=== PATIENT | female | born 1960 | race African-American/Black ===

== ENCOUNTER → 2017-09-05 | Outpatient (CLI) | payer BC, OTHER ==
--- NOTE | 2017-09-06 12:36 | MRI ---
MRI right knee without contrast. Indication: Bilateral knee pain Technique: Multiplanar, multi sequence imaging of the right knee without IV contrast administration. Findings: The extensor mechanism is intact. The patella demonstrates mild lateral tilting however rem ains well positioned within the femoral trochlea. Articular cartilage is mildly thinned within the me dial patellar facet however no subchondral bone marrow edema identified. The medial and lateral retin acular complexes are intact. There is mild widening of the tibial tuberosity to trochlear groove dist ance measuring approximate 2.1 cm. Small suprapatellar joint effusion. Small popliteal fossa cyst. Th e popliteus muscle and tendon are normal. Pes anserine tendons are normal as well. The medial femorot ibial compartment demonstrates diffuse mild thinning of the articular cartilage however there is no s ubchondral bone marrow edema or cystic change. The lateral tibial compartment demonstrates no chondra l thinning or subchondral bone marrow signal abnormality. Bone marrow signal is preserved throughout the right knee. Cruciate collateral ligaments are normal. Iliotibial band and biceps femoris are with in normal limits. The medial meniscus demonstrates irregularity and mild intermediate signal along th e undersurface of the posterior horn for example on coronal image 23 the lateral meniscus is intact. Impression: 1. 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 2. Undersurface fraying and intermediate signal within the posterior horn of the medial meniscus like ly represents chronic, degenerative fraying. No acute or displaced medial or lateral meniscal tear. 3. Mild widening of the tibial tuberosity to trochlear groove distance and lateral tilting of the pat ever is nonspecific as there is no cartilage thinning or edema within the fat pad inferior to the lat eral patellar facet as is usually present with a patellar tracking abnormality. 4. The cruciate and collateral ligaments are intact. Reported By:
--- NOTE | 2017-09-06 12:57 | MRI ---
MRI left knee without contrast Indication: Bilateral knee pain Technique: Multiplanar, multi sequence imaging of the left knee without IV contrast administration. Findings: The extensor mechanism is intact. The patella is normal position without evidence of cartil age thinning or subchondral bone marrow edema. The medial and lateral retinacular complex are intact. The tibial tuberosity to trochlear groove distance is normal. Small suprapatellar joint effusion. Pe s anserine tendons are normal. No popliteal fossa cyst. Popliteus muscle and tendon cord will prove The medial and lateral femorotibial compartments demonstrate mild chondral thinning of the lateral fe morotibial compartment without subchondral bone marrow edema. The no localizing bone marrow signal ab normality within the left knee. Cruciate and collateral ligaments are intact. The medial lateral meni sci are without evidence of tear. Impression: 1.Mild degenerative change of the lateral femorotibial compartment evidence by chondral thinning with out high-grade chondral loss or subchondral bone marrow edema. 2. Cruciate and collateral ligaments along with the menisci are intact. Reported By:
== END ==
LOC: RAD 12:44
PROVIDERS: ATTEND Psychiatry & Neurology Neurology
DX: M51.16 Intervertebral disc disorders with radiculopathy, lumbar region (principal); M16.0 Bilateral primary osteoarthritis of hip; M17.0 Bilateral primary osteoarthritis of knee; G56.03 Carpal tunnel syndrome, bilateral upper limbs
CPT/HCPCS: 73721